=== PATIENT | male | born 2000 | race Caucasian/White ===

== ENCOUNTER 2020-10-25 06:00 | Day surgery (SDC) | payer BC, SELFPAY ==
[2020-09-28 08:00] VITALS: BMI 23.3
--- NOTE | 2020-10-24 09:03 | EKG12_ITS ---
Test Reason : PRE-OP Blood Pressure : / mmHG Vent. Rate : 070 BPM Atrial Rate : 070 BPM P-R Int : 148 ms QRS Dur : 088 ms QT Int : 370 ms P-R-T Axes : 080 069 022 degrees QTc Int : 399 ms Normal sinus rhythm with sinus arrhythmia Normal ECG Confirmed by KINGSTON CASTRO, BARBARA ([id number]), general expeditor LACEY CAMEJO ([id number]) on 10/25/2020 2:02:14 PM Referred By: James Brownlee Confirmed By:BARBARA ONOFRE MD
[2020-10-24 11:00] LABS: Hematocrit 45.2 % (40-54); Hemoglobin 15.8 g/dL (13.0-16.5); Mean Corpuscular Hgb 29.6 pg (27.0-32.0); Mean Corpuscular Volume 84.8 fL (80-94); Mean Platelet Vol. 10.8 fl (6.2-12.0); Platelet Count 247 K/mm3 (150-450); RBC Distribution Width CV 11.5 % (11.6-14.6); RBC Distribution Width SD 34.6 fl (35.1-43.9); Red Blood Count 5.33 M/mm3 (4.6-6.2); White Blood Count 3.9 K/mm3 (4.4-11.0)
[2020-10-24 11:27] LABS: Anion Gap 4 (5-15); BUN 14 mg/dL (7-18); BUN/Creat Ratio 13.1 RATIO (10-20); Calcium,Total 9.2 mg/dL (8.5-10.1); Chloride 104 mmol/L (98-107); Creatinine, Serum 1.07 mg/dL (0.70-1.30); EST Glomerular Filtration Rate 92 mL/min (>60); Est Glom Filt Rate - Afr Amer 111 mL/min (>60); Glucose 83 mg/dL (74-106); Sodium Level 137 mmol/L (136-145)
[2020-10-25] VITALS (7 sets, daily range): BP systolic 107–127; BP diastolic 59–111; PULSE 55–85; RESP 16; TEMP 35.9–36.4; O2SAT 95–100; BMI 22.8
[2020-10-25] MEDS: Lactated Ringers 1,000 ML 15 ML IV ×2 (06:31→08:00)
--- NOTE | 2020-10-25 07:05 | HP.PCM_ITS ---
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 Is patient in pain?: Yes (left groin ) Pain scale (1-10): 4 Allergies No Known Allergies Allergy (Verified 09/28/20 08:01) Medications ibuprofen 200 mg tablet 200 mg PO Q6H PRN 09/28/20 [History Confirmed 09/28/20] PFSH Medical History (Updated 09/28/20 @ 07:57 by Freya Gerard) Left groin pain Left inguinal hernia Surgical History (Updated 09/28/20 @ 07:57 by Freya Gerard) History of wisdom tooth extraction Family History (Updated 09/28/20 @ 07:58 by Freya Gerard) Grandfather Lung cancer Grandmother Breast cancer Social History (Updated 09/28/20 @ 08:00 by Freya Gerard) Smoking Status: Never smoker second hand exposure: No alcohol intake: current alcohol intake frequency: a few times a week substance use type: does not use caffeine: Yes what type of physical activity do you participate in: walking, running, bicycling and weight training frequency: 3-4 times per week HPI HPI HPI: CARRIE IGLESIAS, is a 20 M who presents to the office today for surgical consultation regarding a left inguinal hernia. The patient is referred by Dr. Anthony Ordoñez and a written copy my surgical consult recommendations were returned to him. The patient is noted a left groin bulge for at least a couple years. 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 He does significant minor lifting and straining. He also has reinitiated a physical exercise body workout program. The area will intermittently become tender. He is able to reduce it. He states that he otherwise enjoys a good quality of life. ROS General General: No weight change, appetite, fatigue, colon cancer, breast cancer or w eakness HEENT HEENT: No difficulty swallowing, eye injury, eye surgery, swollen glands or hoarseness Endo Endocrine: No thyroid disease, diabetes mellitus, thyroid cancer, Hair loss, heat intolerance or cold intolerance Skin Skin: No rash or changing moles Musc Musculoskeletal: No back problems, arthritis, rheumatoid arthritis, gout or joint pain Cardio Cardiovascular: No murmur, pacemaker, heart disease, atrial fibrillation, high blood pressure, heart attack, heart stent, palpitations, shortness of breat with exertion or chest pain Psych Psychiatric: No depression, anxiety or hearing voices Resp Respiratory: No shortness of breath, No sleep apnea, No cough, No COPD, No asthma, No emphysema and No wheezing Gastro Gastrointestinal: No abdominal pain, No nausea or vomiting, No diarrhea, No c onstipation, No blood in stool, No acid reflux, No hemorrhoids, No ulcers, No gallbladder problem and No black,tarry stools Arturo Hematologic: No blood thinners, No blood disorders, No bleeding, No anemia and No blood clots Neuro Neurologic: No weakness Exam Const General: cooperative, comfortable and no acute distress Nutritional Appearance: average body habitus Orientation: awake [facility] Head: normal to inspection Eyes General: appearance normal, both eyes and all related structures Resp Effort & Inspection: normal respiratory effort Auscultation: clear to auscultation bilaterally Cardio Rate: regular rate Rhythm: regular rhythm GI Palpation: soft and no hepatosplenomegaly Auscultation: normal bowel sounds Other: Obvious medial left inguinal hernia, defect slightly small but able to reduce the bowel. Testicles are descended without mass. No similar defect on the right. Evidence of heat rash/clipping of hair around the pubic area. Small red punctate lesions Musc Cervical Spine: normal cervical lordosis Skin Other: Folliculitis bilateral groins and suprapubic Neuro General: patient alert and patient awake Extrem General: no calf tenderness bilaterally Psych Attitude: cooperative COVID (Procedure Consent) Procedure Criteria Procedure Criteria: Yes Elective The surgeon/proceduralist and patient have discussed in detail the risk of exposure to and/or potential harm posed by the COVID-19 virus with having a surgery/procedure at this time versus the risk of delaying the surgery/procedure. It is not possible to know either the risk of delaying the surgery or procedure or chance of getting an infection with perfect accuracy, but a joint decision was made between the patient and the surgeon/proceduralist to proceed at this time with the scheduled surgery/procedure as indicated on the consent form. Assessment and Plan Assessment and Plan (1) Left inguinal hernia: Status: Acute Plan Details Additional Comments: I recommend to the patient that he temporarily stop his shaving of the pubic groin areas to try to limit skin irritation and localized folliculitis. The patient is in good health. Because of his work behavior heavy work and because of the groin irritation I propose for him a laparoscopic left inguinal hernia repair. This would be performed with mesh. He is aware of the technique benefit risk complications alternatives. He has had an opportunity to ask and have questions answered. We will schedule and proceed at his discretion. He is aware that this will require period of time off of work ranging from 3 to 6 weeks. He is also aware that he will need to curtail some of his physical exercise. I appreciate the opportunity of assisting with surgical care Copy: Dr. Anthony Brownlee M.D., F.A.C.S. I have re-examined the patient. There are no clinical changes since date of exam.
--- NOTE | 2020-10-25 07:23 | PCM.DC ---
Discharge Instructions Diet Discharge Diet: Light diet - advance as tolerated Activity Discharge Activity: May Not Drive (For 5 to 7 days), May Not Shower (For 3 days) and May Take a Tub Bath Weight Bearing Status: Full weight bearing Dressing / Incision Call your doctor if your incision/area has: Continuous Slow Oozing, Sudden Increased Bleeding and Increased Pain/ Swelling Call your doctor if you observe: Fever of 101 or Higher Suture Line Care: Avoid Pulling/Pushing Change Dressing in: 1 day (You may apply a dry gauze cover dressing to your incision as needed to protect from clothing irritation. Change as needed) Remove Dressing in: 1 week (Leave your Steri-Strips in place for 1 week then you may remove) Follow Up Care Please Follow Up With: James Brownlee MD When: Approximately 10 days. Please call [phone] to arrange for an appointment Test Results: Test results from this visit will be discussed in further detail at your follow-up appointment, if applicable. Discharge Plan Admission Attending Provider: James Brownlee Primary Care Provider: Anthony Ordoñez Discharge Orders/Prescriptions Prescriptions: No Action ibuprofen 200 mg tablet 200 mg PO Q6H PRN (Reason: Pain) RF: 0
[2020-10-25] MEDS: Cefazolin 2 GM in 0.9% Normal Saline 100 ML IV (07:35)
[2020-10-25] MEDS: Bupivacaine Mpf 0.5% 30 ML VIAL (08:45)
--- NOTE | 2020-10-25 08:49 | PCM.OPRPT ---
Problems Associated Problem List Diagnoses (1) Left inguinal hernia: Report of Operation Date of Procedure: 10/25/20 Pre-Operative Diagnosis: Symptomatic left inguinal hernia Post-Operative Diagnosis: Symptomatic large indirect left inguinal hernia Surgery/Procedure Performed:: Laparoscopic left inguinal herniorrhaphy. Bard 3D max large left mesh Lot [id number], reference [id number], expiry date 10/16/2024 Description of Surgical Findings:: Timeout and informed consent was obtained. 20-year-old gentleman was taken to the operating placed on table underwent general endotracheal intubation esthesia. Ancef 2 g were given intravenously. The abdomen the left groins were sterilely prepped and draped. 0.5% Marcaine was used as local anesthetic. Throughout the procedure total 30 cc was used. Skin sites were preanesthetized. A vertical infraumbilical incision was created holding sutures of 0 Vicryl placed varies needle inserted saline drop test performed the abdomen was insufflated with CO2 to a pressure of 10 mmHg pressure. 10 mm trocar inserted. 10 mm laparoscope inserted. No inside trocar injuries. There was evidence of a significant amount of omentum within the left inguinal hernia. 5 mm trochars were placed in the right and left lower quadrant under direct visualization. A ileal inguinal nerve block performed on the left with the Marcaine. This was under laparoscopic control. The peritoneum superior lateral to the internal ring was incised carried medially. The dissection of the peritoneum was extraordinarily tedious as was quite adherent to the retroperitoneum. Had to be dissected free. The sac was very large and had to be tediously teased free. Despite significant attempts I could not freed the entire sac and elected at a point of retraction to transect the sac with electrocautery. Great care was taken to identify vascular structures and the vas deferens. These were carefully preserved as the sac was transected using a combination electrocautery and sharp dissection. Then the sac was dissected free from the cord structures. A small cord lipoma was also inverted. I dissected medially so that I had the direct space identified and the space medial to the femoral vessels. Having achieved that I had good dissection complete reduction of the hernia sac I placed a Bard 3D max left large mesh. It is very nice place that into the position covering the direct indirect and femoral defects. It was secured in place laterally superiorly and medially with secure strap. The peritoneum was then of Doximity to itself using secure strap. Hemolock clips were used were indicated hemoclips were used to repair the peritoneum so as to completely obliterate any access to the mesh. Specimens none. Drains none. Blood loss minimal. Procedure proceeded without complication. The abdomen was allowed to deflate of the CO2 through an antiviral valve. The fascia at the umbilicus approximated up to 0 Vicryl [id number] suture. Skin edges approximated opted for Monocryl subdermal stitches. Steri-Strips Telfa OpSite dressings applied. Sponge and instrument and needle counts were reported to the surgeon to be correct. The patient was taken to recovery area in satisfactory addition without apparent complication James Brownlee M.D., F.A.C.S. Surgeon: James Brownlee Type of Anesthesia: General and Local Anesthesiologist: Nathaniel Lemon
[2020-10-25] MEDS: Acetaminophen 325 MG Tablet 650 MG PO (10:23)
== END 2020-10-25 12:44 | disposition home or self-care (01) ==
LOC: SDC 06:01 → AC 06:02
PROVIDERS: PCP Family Medicine; Referring Provider Surgery; Visit Provider Surgery
PROC: (CPT 49650; principal; 2020-10-25 07:10)
DX: K40.90 Unilateral inguinal hernia, without obstruction or gangrene, not specified as recurrent (principal); L73.9 Follicular disorder, unspecified; Z20.822 Contact with and (suspected) exposure to COVID-19
CPT/HCPCS: 49650; 36415; 80048; 85027; 87426; 93005; C9803; J7120; C1781; J2405